=== PATIENT | male | born 1955 | race Caucasian/White ===

== ENCOUNTER 2023-07-10 10:28 | Outpatient (RCR) | payer MEDICARE, OTHER, SELFPAY ==
[2023-07-10 10:30] VITALS: BP 135/94
[2023-07-10 10:54] LABS: % Basophils 2.1 % (0-2); % Eosinophils 4.4 % (0-6); % Monocytes 10.2 % (1.7-9.3); % Neutrophils 46.3 % (42.2-75.2); Absolute Basophils 0.1 10^3/uL (0-0.2); Absolute Eosinophils 0.2 10^3/uL (0-0.7); Absolute Lymphocytes 1.8 10^3/uL (1.2-3.4); Absolute Monocytes 0.5 10^3/uL (0.1-0.6); Absolute Neutrophils 2.2 10^3/uL (1.4-6.5); Hematocrit 39.6 % (39.0-52.0); Mean Corp Hgb Conc. 32.8 g/dL (33.0-37.0); Mean Corpuscular Hgb 28.3 pg (27.0-31.0); Mean Corpuscular Volume 86.1 fL (80.0-94.0); Mean Platelet Volume 10.3 fL (7.4-10.4); Nucleated Red Blood Cells % 0 % (-); Platelet Count 279 10^3/uL (130-400); White Blood Cell Count 4.8 10^3/uL (4.8-10.8)
[2023-07-10 11:20] VITALS: BP 126/81
[2023-07-10 11:25] VITALS: BP 115/80
== END 2023-07-13 08:11 | disposition home or self-care (01) ==
LOC: OID 10:28
PROVIDERS: ATTENDING PHYSICIAN Internal Medicine Gastroenterology; FAMILY PHYSICIAN Family Medicine; REFERRING PHYSICIAN Physician Assistant Medical
DX: E83.110 Hereditary hemochromatosis (principal)
CPT/HCPCS: 36415; 85025; 99195

== ENCOUNTER 2023-08-27 13:21 | Outpatient (RCR) | payer MEDICARE, OTHER, SELFPAY ==
[2023-08-27 13:39] LABS: % Basophils 0.9 % (0-2); % Lymphocytes 31.9 % (20.5-51.1); % Monocytes 7.4 % (1.7-9.3); % Neutrophils 56.8 % (42.2-75.2); Absolute Eosinophils 0.1 10^3/uL (0-0.7); Absolute Lymphocytes 1.4 10^3/uL (1.2-3.4); Absolute Monocytes 0.3 10^3/uL (0.1-0.6); Absolute Neutrophils 2.5 10^3/uL (1.4-6.5); Hematocrit 38.2 % (39.0-52.0); Hemoglobin 12.8 g/dL (13.0-18.0); Mean Corp Hgb Conc. 33.5 g/dL (33.0-37.0); Mean Corpuscular Hgb 29.4 pg (27.0-31.0); Mean Corpuscular Volume 87.8 fL (80.0-94.0); Mean Platelet Volume 10.3 fL (7.4-10.4); Platelet Count 188 10^3/uL (130-400); Red Blood Cell Count 4.35 10^6/uL (4.70-6.10); Red Cell Dist. Width 14.4 % (11.5-14.5); White Blood Cell Count 4.3 10^3/uL (4.8-10.8)
[2023-08-27 13:45] VITALS: BP 129/71
[2023-08-27 14:25] VITALS: BP 130/73
[2023-08-27 14:30] VITALS: BP 119/81
== END 2023-08-28 08:15 | disposition home or self-care (01) ==
LOC: OID 13:21
PROVIDERS: ATTENDING PHYSICIAN Internal Medicine Gastroenterology; FAMILY PHYSICIAN Family Medicine; REFERRING PHYSICIAN Physician Assistant Medical
DX: E83.110 Hereditary hemochromatosis (principal)
CPT/HCPCS: 36415; 85025; 99195

== ENCOUNTER 2023-10-13 08:51 | Outpatient (RCR) | payer MEDICARE, OTHER, SELFPAY ==
[2023-10-13 09:19] VITALS: BP 136/87
[2023-10-13 10:09] LABS: % Basophils 2.2 % (0-2); % Eosinophils 5.9 % (0-6); % Immature Granulocytes 0.3 % (0-0.5); % Lymphocytes 42.2 % (20.5-51.1); % Monocytes 8.4 % (1.7-9.3); Absolute Basophils 0.1 10^3/uL (0-0.2); Absolute Eosinophils 0.2 10^3/uL (0-0.7); Absolute Lymphocytes 1.4 10^3/uL (1.2-3.4); Absolute Monocytes 0.3 10^3/uL (0.1-0.6); Absolute Neutrophils 1.3 10^3/uL (1.4-6.5); Hematocrit 37.3 % (39.0-52.0); Hemoglobin 12.7 g/dL (13.0-18.0); Mean Corpuscular Hgb 29.1 pg (27.0-31.0); Mean Corpuscular Volume 85.6 fL (80.0-94.0); Mean Platelet Volume 11.1 fL (7.4-10.4); Nucleated Red Blood Cells % 0 % (-); Platelet Count 257 10^3/uL (130-400); Red Blood Cell Count 4.36 10^6/uL (4.70-6.10); Red Cell Dist. Width 14.2 % (11.5-14.5); White Blood Cell Count 3.2 10^3/uL (4.8-10.8)
[2023-10-13 11:45] VITALS: BP 139/82
[2023-10-13 11:50] VITALS: BP 134/65
== END 2023-10-13 14:34 | disposition home or self-care (01) ==
LOC: OID 08:51
PROVIDERS: ATTENDING PHYSICIAN Internal Medicine Gastroenterology; FAMILY PHYSICIAN Family Medicine; REFERRING PHYSICIAN Physician Assistant Medical
DX: E83.110 Hereditary hemochromatosis (principal)
CPT/HCPCS: 36415; 85025; 99195

== ENCOUNTER 2023-12-10 09:19 | Outpatient (RCR) | payer MEDICARE, OTHER, SELFPAY ==
[2023-12-10 09:59] LABS: % Basophils 1.2 % (0-2); % Eosinophils 2.4 % (0-6); % Immature Granulocytes 0.2 % (0-0.5); % Lymphocytes 27.2 % (20.5-51.1); % Monocytes 6.7 % (1.7-9.3); % Neutrophils 62.3 % (42.2-75.2); Absolute Basophils 0.1 10^3/uL (0-0.2); Absolute Eosinophils 0.1 10^3/uL (0-0.7); Absolute Lymphocytes 1.3 10^3/uL (1.2-3.4); Absolute Monocytes 0.3 10^3/uL (0.1-0.6); Absolute Neutrophils 3.1 10^3/uL (1.4-6.5); Hematocrit 39.7 % (39.0-52.0); Mean Corp Hgb Conc. 32.7 g/dL (33.0-37.0); Mean Corpuscular Hgb 29.5 pg (27.0-31.0); Mean Platelet Volume 10.9 fL (7.4-10.4); Platelet Count 220 10^3/uL (130-400); Red Blood Cell Count 4.41 10^6/uL (4.70-6.10); Red Cell Dist. Width 14.4 % (11.5-14.5); White Blood Cell Count 4.9 10^3/uL (4.8-10.8)
[2023-12-10 10:15] VITALS: BP 134/88
[2023-12-10 10:39] VITALS: BP 153/92
[2023-12-10 10:55] VITALS: BP 133/85
[2023-12-10 14:06] LABS: ALT (SGPT) 14 U/L (0-50); AST (SGOT) 23 U/L (17-59); Albumin 4.1 g/dl (3.5-5.0); Alkaline Phosphatase 68 U/L (38-126); Blood Urea Nitrogen 16 mg/dl (9-20); Calcium 9.4 mg/dl (8.4-10.2); Carbon Dioxide 27 mmol/L (22-30); Chloride 105 mmol/L (98-107); Glucose 109 mg/dl (70-99); Iron 82 ug/dl (49-181); Potassium 4.5 mmol/L (3.5-5.1); Sodium 139 mmol/L (135-145); Total Bilirubin 0.4 mg/dl (0.2-1.3); Total Protein 6.6 g/dl (6.3-8.2); eGFR > 60.00
[2023-12-10 14:15] LABS: Percent Saturation 40 % (20-50); Total Iron Binding Capacity 203 ug/dl (261-462)
[2023-12-10 14:40] LABS: Ferritin 20.6 ng/ml (17.9-464.0)
== END 2024-01-02 23:59 | disposition home or self-care (01) ==
LOC: OID 09:19
PROVIDERS: ATTENDING PHYSICIAN Internal Medicine Gastroenterology; FAMILY PHYSICIAN Family Medicine; REFERRING PHYSICIAN Physician Assistant Medical
DX: E83.110 Hereditary hemochromatosis (principal)
CPT/HCPCS: 36415; 80053; 82728; 83540; 83550; 85025; 99195

== ENCOUNTER 2024-01-28 09:44 | Outpatient (RCR) | payer MEDICARE, OTHER, SELFPAY ==
[2024-01-28 09:57] LABS: % Basophils 1.1 % (0-2); % Eosinophils 3.5 % (0-6); % Lymphocytes 36.5 % (20.5-51.1); % Monocytes 10.8 % (1.7-9.3); % Neutrophils 48.1 % (42.2-75.2); Absolute Eosinophils 0.1 10^3/uL (0-0.7); Absolute Lymphocytes 1.4 10^3/uL (1.2-3.4); Absolute Monocytes 0.4 10^3/uL (0.1-0.6); Absolute Neutrophils 1.8 10^3/uL (1.4-6.5); Hematocrit 37.8 % (39.0-52.0); Hemoglobin 12.5 g/dL (13.0-18.0); Mean Corp Hgb Conc. 33.1 g/dL (33.0-37.0); Mean Corpuscular Hgb 29.1 pg (27.0-31.0); Mean Corpuscular Volume 88.1 fL (80.0-94.0); Mean Platelet Volume 10.7 fL (7.4-10.4); Platelet Count 214 10^3/uL (130-400); Red Blood Cell Count 4.29 10^6/uL (4.70-6.10); Red Cell Dist. Width 13.7 % (11.5-14.5); White Blood Cell Count 3.7 10^3/uL (4.8-10.8)
[2024-01-28 10:00] VITALS: BP 131/80
[2024-01-28 10:40] VITALS: BP 124/79
[2024-01-28 10:45] VITALS: BP 134/78
== END 2024-01-29 09:56 | disposition home or self-care (01) ==
LOC: OID 09:44
PROVIDERS: ATTENDING PHYSICIAN Internal Medicine Gastroenterology; FAMILY PHYSICIAN Family Medicine; REFERRING PHYSICIAN Physician Assistant Medical
DX: E83.110 Hereditary hemochromatosis (principal)
CPT/HCPCS: 36415; 85025; 99195

== ENCOUNTER 2024-03-17 09:40 | Outpatient (RCR) | payer MEDICARE, OTHER, SELFPAY ==
[2024-03-17 09:58] LABS: % Basophils 0.8 % (0-2); % Eosinophils 4.8 % (0-6); % Lymphocytes 37.4 % (20.5-51.1); % Monocytes 9.9 % (1.7-9.3); % Neutrophils 47.1 % (42.2-75.2); Absolute Eosinophils 0.2 10^3/uL (0-0.7); Absolute Lymphocytes 1.5 10^3/uL (1.2-3.4); Absolute Monocytes 0.4 10^3/uL (0.1-0.6); Absolute Neutrophils 1.9 10^3/uL (1.4-6.5); Hematocrit 39.2 % (39.0-52.0); Hemoglobin 12.7 g/dL (13.0-18.0); Mean Corp Hgb Conc. 32.4 g/dL (33.0-37.0); Mean Corpuscular Hgb 28.3 pg (27.0-31.0); Mean Corpuscular Volume 87.3 fL (80.0-94.0); Mean Platelet Volume 10.4 fL (7.4-10.4); Platelet Count 244 10^3/uL (130-400); Red Blood Cell Count 4.49 10^6/uL (4.70-6.10); White Blood Cell Count 3.9 10^3/uL (4.8-10.8)
[2024-03-17 10:20] VITALS: BP 138/87
[2024-03-17 10:45] VITALS: BP 134/82
[2024-03-17 10:50] VITALS: BP 121/87
[2024-03-17 12:32] LABS: ALT (SGPT) 18 U/L (0-50); AST (SGOT) 25 U/L (17-59); Albumin 4.7 g/dl (3.5-5.0); Alkaline Phosphatase 65 U/L (38-126); Blood Urea Nitrogen 16 mg/dl (9-20); Calcium 9.8 mg/dl (8.4-10.2); Carbon Dioxide 26 mmol/L (22-30); Chloride 103 mmol/L (98-107); Glucose 90 mg/dl (70-99); Iron 91 ug/dl (49-181); Sodium 142 mmol/L (135-145); Total Bilirubin 0.8 mg/dl (0.2-1.3); Total Protein 7.4 g/dl (6.3-8.2); eGFR > 60.00
[2024-03-17 12:41] LABS: Percent Saturation 37 % (20-50); Total Iron Binding Capacity 240 ug/dl (261-462)
[2024-03-17 13:07] LABS: Ferritin 12.1 ng/ml (17.9-464.0)
== END 2024-03-18 09:29 | disposition home or self-care (01) ==
LOC: OID 09:40
PROVIDERS: ATTENDING PHYSICIAN Internal Medicine Gastroenterology; FAMILY PHYSICIAN Family Medicine; REFERRING PHYSICIAN Physician Assistant Medical
DX: E83.110 Hereditary hemochromatosis (principal)
CPT/HCPCS: 36415; 80053; 82728; 83540; 83550; 85025; 99195

== ENCOUNTER 2024-05-19 09:30 | Outpatient (RCR) | payer MEDICARE, OTHER, SELFPAY ==
[2024-05-19 09:56] LABS: % Basophils 1.4 % (0-2); % Eosinophils 5.3 % (0-6); % Lymphocytes 34.4 % (20.5-51.1); % Monocytes 10.3 % (1.7-9.3); % Neutrophils 48.6 % (42.2-75.2); Absolute Basophils 0.1 10^3/uL (0-0.2); Absolute Eosinophils 0.2 10^3/uL (0-0.7); Absolute Lymphocytes 1.4 10^3/uL (1.2-3.4); Absolute Monocytes 0.4 10^3/uL (0.1-0.6); Hematocrit 42.5 % (39.0-52.0); Mean Corp Hgb Conc. 32.9 g/dL (33.0-37.0); Mean Corpuscular Hgb 28.5 pg (27.0-31.0); Mean Corpuscular Volume 86.6 fL (80.0-94.0); Mean Platelet Volume 10.1 fL (7.4-10.4); Platelet Count 243 10^3/uL (130-400); Red Blood Cell Count 4.91 10^6/uL (4.70-6.10); Red Cell Dist. Width 14.7 % (11.5-14.5); White Blood Cell Count 4.2 10^3/uL (4.8-10.8)
[2024-05-19 10:20] VITALS: BP 132/79
[2024-05-19 10:45] VITALS: BP 129/98
[2024-05-19 10:50] VITALS: BP 135/87
== END 2024-05-20 09:04 | disposition home or self-care (01) ==
LOC: OID 09:30
PROVIDERS: ATTENDING PHYSICIAN Internal Medicine Gastroenterology; FAMILY PHYSICIAN Family Medicine; REFERRING PHYSICIAN Physician Assistant Medical
DX: E83.110 Hereditary hemochromatosis (principal)
CPT/HCPCS: 36415; 85025; 99195

== ENCOUNTER 2024-07-07 10:24 | Outpatient (RCR) | payer MEDICARE, OTHER, SELFPAY ==
[2024-07-07 10:44] LABS: % Basophils 0.6 % (0-2); % Eosinophils 3.6 % (0-6); % Lymphocytes 38.6 % (20.5-51.1); % Monocytes 11.9 % (1.7-9.3); % Neutrophils 45.3 % (42.2-75.2); Absolute Eosinophils 0.1 10^3/uL (0-0.7); Absolute Lymphocytes 1.3 10^3/uL (1.2-3.4); Absolute Monocytes 0.4 10^3/uL (0.1-0.6); Absolute Neutrophils 1.5 10^3/uL (1.4-6.5); Hematocrit 37.4 % (39.0-52.0); Hemoglobin 12.5 g/dL (13.0-18.0); Mean Corp Hgb Conc. 33.4 g/dL (33.0-37.0); Mean Corpuscular Hgb 29.3 pg (27.0-31.0); Mean Corpuscular Volume 87.6 fL (80.0-94.0); Mean Platelet Volume 10.1 fL (7.4-10.4); Platelet Count 254 10^3/uL (130-400); Red Blood Cell Count 4.27 10^6/uL (4.70-6.10); Red Cell Dist. Width 14.4 % (11.5-14.5); White Blood Cell Count 3.3 10^3/uL (4.8-10.8)
[2024-07-07 10:45] VITALS: BP 145/81
[2024-07-07 11:20] VITALS: BP 143/92
[2024-07-07 11:25] VITALS: BP 139/87
== END 2024-07-08 08:16 | disposition home or self-care (01) ==
LOC: OID 10:24
PROVIDERS: ATTENDING PHYSICIAN Internal Medicine Gastroenterology; FAMILY PHYSICIAN Family Medicine; REFERRING PHYSICIAN Physician Assistant Medical
DX: E83.110 Hereditary hemochromatosis (principal)
CPT/HCPCS: 36415; 85025; 99195

== ENCOUNTER 2024-08-26 08:42 | Outpatient (RCR) | payer MEDICARE, OTHER, SELFPAY ==
[2024-08-26 08:54] LABS: % Basophils 1.3 % (0-2); % Eosinophils 4.1 % (0-6); % Immature Granulocytes 0.3 % (0-0.5); % Monocytes 9.9 % (1.7-9.3); % Neutrophils 49.4 % (42.2-75.2); Absolute Basophils 0.1 10^3/uL (0-0.2); Absolute Eosinophils 0.2 10^3/uL (0-0.7); Absolute Lymphocytes 1.4 10^3/uL (1.2-3.4); Absolute Monocytes 0.4 10^3/uL (0.1-0.6); Hematocrit 38.3 % (39.0-52.0); Mean Corp Hgb Conc. 33.9 g/dL (33.0-37.0); Mean Corpuscular Hgb 29.9 pg (27.0-31.0); Platelet Count 231 10^3/uL (130-400); Red Blood Cell Count 4.35 10^6/uL (4.70-6.10); Red Cell Dist. Width 14.1 % (11.5-14.5); White Blood Cell Count 3.9 10^3/uL (4.8-10.8)
[2024-08-26 09:03] VITALS: BP 138/81
== END 2024-08-31 23:59 | disposition home or self-care (01) ==
LOC: OID 08:42
PROVIDERS: ATTENDING PHYSICIAN Internal Medicine Gastroenterology; FAMILY PHYSICIAN Family Medicine; REFERRING PHYSICIAN Physician Assistant Medical
DX: E83.110 Hereditary hemochromatosis (principal)
CPT/HCPCS: 36415; 85025; 99195

== ENCOUNTER → 2024-09-22 14:44 | Outpatient (REF) | payer MEDICARE, OTHER, SELFPAY | LOC: RAD 14:44 | PROVIDERS: ATTENDING PHYSICIAN Nurse Practitioner Family; FAMILY PHYSICIAN Family Medicine | DX: S45.012 Laceration of axillary artery, left side (principal) | CPT/HCPCS: 73030 ==

== ENCOUNTER 2024-10-13 14:11 | Outpatient (RCR) | payer MEDICARE, OTHER, SELFPAY ==
[2024-10-13 14:26] LABS: % Basophils 0.3 % (0-2); % Eosinophils 1.5 % (0-6); % Lymphocytes 24.1 % (20.5-51.1); % Monocytes 6.7 % (1.7-9.3); % Neutrophils 67.4 % (42.2-75.2); Absolute Eosinophils 0.1 10^3/uL (0-0.7); Absolute Lymphocytes 1.5 10^3/uL (1.2-3.4); Absolute Monocytes 0.4 10^3/uL (0.1-0.6); Absolute Neutrophils 4.1 10^3/uL (1.4-6.5); Hematocrit 38.6 % (39.0-52.0); Hemoglobin 12.9 g/dL (13.0-18.0); Mean Corp Hgb Conc. 33.4 g/dL (33.0-37.0); Mean Corpuscular Hgb 29.4 pg (27.0-31.0); Mean Corpuscular Volume 87.9 fL (80.0-94.0); Mean Platelet Volume 10.3 fL (7.4-10.4); Platelet Count 234 10^3/uL (130-400); Red Blood Cell Count 4.39 10^6/uL (4.70-6.10); White Blood Cell Count 6.1 10^3/uL (4.8-10.8)
[2024-10-13 14:45] VITALS: BP 114/69
[2024-10-13 15:30] VITALS: BP 122/70
[2024-10-13 15:35] VITALS: BP 113/83
== END 2024-10-14 09:26 | disposition home or self-care (01) ==
LOC: OID 14:11
PROVIDERS: ATTENDING PHYSICIAN Internal Medicine Gastroenterology; FAMILY PHYSICIAN Family Medicine
DX: E83.110 Hereditary hemochromatosis (principal)
CPT/HCPCS: 36415; 85025; 99195

== ENCOUNTER 2024-12-06 09:03 | Outpatient (RCR) | payer MEDICARE, OTHER, SELFPAY ==
[2024-12-06 09:20] LABS: Hematocrit 39.6 % (39.0-52.0); Hemoglobin 13.0 g/dL (13.0-18.0); Mean Corp Hgb Conc. 32.8 g/dL (33.0-37.0); Mean Corpuscular Volume 89.4 fL (80.0-94.0); Platelet Count 242 10^3/uL (130-400); Red Cell Dist. Width 13.6 % (11.5-14.5)
[2024-12-06 09:30] VITALS: BP 135/72
[2024-12-06 10:05] VITALS: BP 127/76
[2024-12-06 10:09] VITALS: BP 127/76
[2024-12-06 10:10] VITALS: BP 138/85
== END 2025-01-01 23:59 | disposition home or self-care (01) ==
LOC: OID 09:03
PROVIDERS: ATTENDING PHYSICIAN Internal Medicine Gastroenterology; FAMILY PHYSICIAN Family Medicine
DX: E83.110 Hereditary hemochromatosis (principal)
CPT/HCPCS: 36415; 85025; 99195

== ENCOUNTER 2025-01-19 08:52 | Outpatient (RCR) | payer MEDICARE, OTHER, SELFPAY ==
[2025-01-19 09:02] LABS: Hematocrit 39.1 % (39.0-52.0); Hemoglobin 13.0 g/dL (13.0-18.0); Mean Corp Hgb Conc. 33.2 g/dL (33.0-37.0); Mean Corpuscular Volume 90.3 fL (80.0-94.0); Platelet Count 218 10^3/uL (130-400); Red Cell Dist. Width 13.8 % (11.5-14.5)
[2025-01-19 09:15] VITALS: BP 123/87
[2025-01-19 09:40] VITALS: BP 112/77
[2025-01-19 09:45] VITALS: BP 136/90
== END 2025-01-31 23:59 | disposition home or self-care (01) ==
LOC: OID 08:52
PROVIDERS: ATTENDING PHYSICIAN Internal Medicine Gastroenterology; FAMILY PHYSICIAN Family Medicine
DX: E83.110 Hereditary hemochromatosis (principal)
CPT/HCPCS: 36415; 85025; 99195

== ENCOUNTER 2025-03-02 10:09 | Outpatient (RCR) | payer MEDICARE, OTHER, SELFPAY ==
[2025-03-02 10:37] LABS: Hematocrit 38.8 % (39.0-52.0); Hemoglobin 12.9 g/dL (13.0-18.0); Mean Corp Hgb Conc. 33.2 g/dL (33.0-37.0); Mean Corpuscular Volume 89.8 fL (80.0-94.0); Platelet Count 218 10^3/uL (130-400); Red Cell Dist. Width 13.9 % (11.5-14.5)
[2025-03-02 10:49] VITALS: BP 135/81
[2025-03-02 11:20] VITALS: BP 139/82
== END 2025-03-03 23:59 | disposition home or self-care (01) ==
LOC: OID 10:09
PROVIDERS: ATTENDING PHYSICIAN Internal Medicine Gastroenterology; FAMILY PHYSICIAN Family Medicine
DX: E83.110 Hereditary hemochromatosis (principal)
CPT/HCPCS: 36415; 85025; 99195

== ENCOUNTER 2025-04-18 14:12 | Outpatient (RCR) | payer MEDICARE, OTHER, SELFPAY ==
[2025-04-18 14:25] LABS: Hematocrit 39.2 % (39.0-52.0); Hemoglobin 12.8 g/dL (13.0-18.0); Mean Corp Hgb Conc. 32.7 g/dL (33.0-37.0); Mean Corpuscular Volume 91.2 fL (80.0-94.0); Platelet Count 220 10^3/uL (130-400); Red Cell Dist. Width 13.9 % (11.5-14.5)
[2025-04-18 14:38] VITALS: BP 133/86
[2025-04-18 15:03] VITALS: BP 134/83
[2025-04-18 15:04] VITALS: BP 132/90
== END 2025-05-03 23:59 | disposition home or self-care (01) ==
LOC: OID 14:12
PROVIDERS: ATTENDING PHYSICIAN Internal Medicine Gastroenterology; FAMILY PHYSICIAN Family Medicine
DX: E83.110 Hereditary hemochromatosis (principal)
CPT/HCPCS: 36415; 85025; 99195